=== PATIENT | male | born 1960 | race Caucasian/White ===

== ENCOUNTER 2019-11-12 00:41 | Observation (INO) | payer MEDICARE ==
[2019-11-12] MEDS: Aspirin 81 MG Tab.Chew PO ONE ×2 (00:52→07:58)
[2019-11-12] MEDS: Morphine 2 MG/ML Syringe IVPUSH ONE (01:09)
[2019-11-12] MEDS: Diltiazem 25 MG/5 ML SDV IVPUSH ONE (01:10)
[2019-11-12] MEDS ORDERED: LORazepam 2 MG/ML SDV IVPUSH PRN (02:00)
[2019-11-12] MEDS ORDERED: Acetaminophen/oxyCODONE 325-5 MG Tab PO PRN (03:07)
[2019-11-12] MEDS ORDERED: oxyCODONE 5 MG Tab PO PRN (03:08)
--- NOTE | 2019-11-12 04:06 | ADMIT ---
A 59-year-old male who was admitted through the emergency room. He came in by ambulance last evening with complaints of chest pain and anxiety issues. The cardiac workup was negative. D-dimer was also negative. The patient had traveled from [place] approximately a 6-hour car ride yesterday to come up here for a fishing trip. The patient's workup last night was negative. Troponin was normal. EKG showed just a slight tachycardia starting out around 105 to 110, and the patient was in moderate respiratory distress. This seemed to resolve within about 20 minutes. Upon arrival, he was given 4 baby aspirin and 1.2 mg of morphine and 20 mg of Cardizem IV. The patient was asymptomatic after this, and the lab workup was unremarkable. The white count is slightly elevated at 12.6. D-dimer is normal. Comprehensive metabolic panel normal. Troponin normal. EKG showed just slight tachycardia. He was diagnosed with atypical chest pain and anxiety. The patient will be admitted for observation, and we will repeat the troponin level in the morning. He will also be given Ativan as needed overnight. Past medical history includes dyslipidemia, cardiac arrhythmia. He is not sure if it was just a fast heart rate or atrial fibrillation. Upon transferring the patient from the ER, he was asymptomatic and had been so for approximately 45 minutes. SYMONE/MODL /[id number]
--- NOTE | 2019-11-12 04:06 | ER ---
HISTORY OF PRESENT ILLNESS: A 59-year-old male who comes in by ambulance with complaints of chest pain and shortness of breath. This started approximately 1 hour ago. The patient tells me he had a fishing resort. They just arrived today after several hours of travel time on the road. He had right shoulder pain when he was trying to go to sleep. The patient tells me he decided to get up and get some [place] to put on his shoulder for the pain and he basically passed out or had a near syncopal episode. He states he fell over the chair. He does not think he was completely unconscious, but when he stood up, he was unsteady on his feet and then he developed shortness of breath and chest tightness and some chest pain. Upon arrival to the ER, he tells us that the chest pain had resolved, but he still was having trouble getting enough air. The patient denies any injuries from his fall and states he otherwise has been healthy. He has not been coughing. He has not been sick. He has not been running a fever. PAST MEDICAL HISTORY: Includes tachycardia versus VFib. He is unsure and knows he had some kind of a funny heart rhythm. He has never had any history of coronary artery disease. The patient also has history of dyslipidemia. He denies any history of anxiety. He has chronic pain involving shoulders, hips, knees, and feet. He is taking Percocet 4 times a day for this. OBJECTIVE: GENERAL APPEARANCE: The patient is awake and alert. He is in moderate respiratory distress. VITAL SIGNS: Reviewed. Initially, blood pressure 144/84, temp is 98.7, pulse is between 105 and 110, respirations 28. HEENT: Oral mucous membranes moist. Tonsils not enlarged or injected. Pharynx not inflamed. NECK: Supple. LUNGS: Clear with fairly good air exchange throughout the lung [place]. CARDIAC: Heart sounds distinct. There is a slight murmur. The patient states he has had this for years. ABDOMEN: Soft, protuberant, nontender to palpation. Bowel sounds are present. SKIN: Warm and dry. LAB AND X-RAY: An EKG shows a tachycardic rhythm and a questionable right bundle branch block. The patient was given 4 baby aspirin at this point. EKG was repeated within a couple of minutes due to some poor quality issues and it just shows mild tachycardia and no ST elevation or depression noted. Labs include a CBC showing a slightly elevated white count of 12.6, otherwise unremarkable. D-dimer is less than 100. Comprehensive metabolic panel is normal. Troponin is normal. Chest x-ray is obtained with no acute findings. During the course of waiting for the lab results, the patient did have 2 small episodes where he felt some tightness in his chest. Morphine 2 mg was given x1, and I did give the patient Cardizem 20 mg IV. His pulse came down to around 100 and his breathing relaxed. Within about 30 minutes, his breathing was normal, and the patient has been asymptomatic since. DIAGNOSIS: 1. Chest pain, atypical. 2. Anxiety. TREATMENT PLAN: We will admit the patient for observation overnight, and repeat the troponin level in the morning. SYMONE/MODL /[id number]
--- NOTE | 2019-11-12 07:59 | CR ---
Date of Service: 11/12/19 Clinical Data: Chest pain AP CHEST: No priors . The heart size is normal. The lungs are clear. No pneumothorax. No pleural effusions. No evidence of acute intrathoracic disease. [id number] [facility]
[2019-11-12] MEDS ORDERED: Non-Formulary Medication 1 Each (Magnesium Chloride [Slow-Mag] 71.5 MG) PO SCH (08:00)
[2019-11-12] MEDS ORDERED: Flecainide 50 MG Tab PO SCH (08:00)
[2019-11-12] MEDS ORDERED: Nitroglycerin 0.4 MG Tab.SL SL PRN (08:28)
[2019-11-12] MEDS: Heparin Sodium 5,000 Units/ML Vial IVPUSH ONE (08:45)
[2019-11-12] MEDS: Heparin Sodium/D5W 25,000 UNITS/500 ML BAG IV SCH (08:45)
[2019-11-12] MEDS: Metoprolol Tartrate 25 MG Tab PO ONE (08:50)
[2019-11-12] MEDS: atorvaSTATin 80 MG Tab PO ONE (08:50)
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
[2019-11-12] MEDS: Aspirin 81 MG Tab.EC PO SCH (09:19)
[2019-11-12] MEDS ORDERED: Sodium Chloride 0.9% 1,000 ML IV SCH (09:45)
--- NOTE | 2019-11-12 11:21 | PCM.DCSUM1 ---
Discharge Summary - Hospital Course HPI Initial Comments: 59 yo male with mid sternal chest pain, resolved with rest. Hx of arrhythmia and musculoskeletal hx. Troponin negative on admit and after 6 hour has elevated. Consult with hospitalist, [facility] and orders received for heparin qtt and accepting of pt. Pt has been stable and no acute distress and resting well. Vital signs normal. will transfer per road ambulance, pt stable and VS normal. Heparin qtt started, order for MS prn and nitro prn for transfer. - Discharge Data Discharge Date: 11/12/19 Discharge Disposition: DC/Tfer to Other 70 Condition: Good - Referral to Home Health Primary Care Physician: PCP None - Discharge Plan Home Medications: Home Meds Aspirin [Halfprin] 81 mg PO DAILY 11/12/19 [History] Flecainide Acetate 50 mg PO BID 11/12/19 [History] Magnesium Chloride [Slow-Mag] 71.5 mg PO DAILY 11/12/19 [History] atorvaSTATin [Lipitor] 20 mg PO BEDTIME 11/12/19 [History] oxyCODONE HCl/Acetaminophen [Percocet 7.5-325 mg Tablet] 1 each PO Q6H PRN 11/12 [History] Forms: ED Department Discharge Referrals: PCP,None [Primary Care Provider] - - Discharge Summary/Plan Comment DC Time >30 min.: No Discharge Summary/Plan Comment: Plan to transfer via road ambulance to [facility] with elevated troponin and mid sternal chest pain last night, possible acute coronary syndrome. - General Info Date of Service: 11/12/19 Functional Status: Reports: Pain Controlled, Urinating - Review of Systems General: Reports: No Symptoms HEENT: Reports: No Symptoms Pulmonary: Denies: Shortness of Breath, Pleuritic Chest Pain, Cough Cardiovascular: Denies: Chest Pain, Palpitations, Edema Gastrointestinal: Denies: Abdominal Pain, Decreased Appetite, Diarrhea Neurological: Reports: No Symptoms. Denies: Confusion, Dizziness, Headache Psychiatric: Reports: No Symptoms - Patient Data Vitals - Most Recent: Last Vital Signs Temp 98.3 F 11/12/19 08:00 Pulse 78 11/12/19 08:50 Resp 16 11/12/19 08:00 BP 135/71 11/12/19 08:50 Pulse Ox 97 11/12/19 08:00 Weight - Most Recent: 248 lb Lab Results - Last 24 hrs: Laboratory Results - last 24 hr 11/12/19 11/12/19 11/12/19 Range/Units 01:10 01:10 01:10 WBC 12.6 H (4.0-11.0) K/uL RBC 4.61 (4.50-6.50) M/uL Hgb 15.4 (13.0-18.0) g/dL Hct 44.9 (40.0-54.0) % MCV 97 H (76-96) fL MCH 33.4 H (27.0-32.0) pg MCHC 34.3 (31.0-35.0) g/dL RDW 13.0 (11.0-16.0) % Plt Count 288 (150-400) K/uL MPV 9.5 (6.0-10.0) fL Neut % (Auto) 67.3 (45.0-70.0) % Lymph % (Auto) 19.9 L (20.0-40.0) % [place] % (Auto) 9.5 (3.0-10.0) % Eos % (Auto) 2.7 (1.0-5.0) % Baso % (Auto) 0.6 H (0.0-0.5) % Neut # (Auto) 8.47 H (2.00-7.50) K/uL Lymph # (Auto) 2.50 (1.50-4.00) K/uL [place] # (Auto) 1.20 H (0.20-0.80) K/uL Eos # (Auto) 0.34 (0.04-0.40) K/uL Baso # (Auto) 0.07 (0.02-0.10) K/uL D-Dimer, Quantitative < 100 (0-400) ng/mL Sodium 145 (136-145) mmol/L Potassium 4.1 (3.5-5.1) mmol/L Chloride 105 (98-107) mmol/L Carbon Dioxide 26.0 (21.0-32.0) mmol/L Anion Gap 18.1 H (5.0-15.0) mmol/L BUN 16 (8-26) mg/dL Creatinine 1.12 (0.70-1.30) mg/dL Est Cr Clr Drug Dosing TNP Estimated GFR (MDRD) > 60 (>60) MLS/MIN BUN/Creatinine Ratio 14.3 (6-25) Glucose 120 H (74-100) mg/dL Calcium 9.1 (8.5-10.1) mg/dL Total Bilirubin 0.4 (0.0-1.0) mg/dL AST 24 (15-37) U/L ALT 30 (12-78) U/L Alkaline Phosphatase 69 (46-116) U/L Troponin I < 0.017 (0.000-0.060) ng/mL Total Protein 6.9 (6.4-8.2) g/dL Albumin 3.5 (3.4-5.0) g/dL Globulin 3.4 (2.2-4.2) g/dL Albumin/Globulin Ratio 1.0 (0.8-2.0) 11/12/19 Range/Units 07:05 WBC (4.0-11.0) K/uL RBC (4.50-6.50) M/uL Hgb (13.0-18.0) g/dL Hct (40.0-54.0) % MCV (76-96) fL MCH (27.0-32.0) pg MCHC (31.0-35.0) g/dL RDW (11.0-16.0) % Plt Count (150-400) K/uL MPV (6.0-10.0) fL Neut % (Auto) (45.0-70.0) % Lymph % (Auto) (20.0-40.0) % [place] % (Auto) (3.0-10.0) % Eos % (Auto) (1.0-5.0) % Baso % (Auto) (0.0-0.5) % Neut # (Auto) (2.00-7.50) K/uL Lymph # (Auto) (1.50-4.00) K/uL [place] # (Auto) (0.20-0.80) K/uL Eos # (Auto) (0.04-0.40) K/uL Baso # (Auto) (0.02-0.10) K/uL D-Dimer, Quantitative (0-400) ng/mL Sodium (136-145) mmol/L Potassium (3.5-5.1) mmol/L Chloride (98-107) mmol/L Carbon Dioxide (21.0-32.0) mmol/L Anion Gap (5.0-15.0) mmol/L BUN (8-26) mg/dL Creatinine (0.70-1.30) mg/dL Est Cr Clr Drug Dosing Estimated GFR (MDRD) (>60) MLS/MIN BUN/Creatinine Ratio (6-25) Glucose (74-100) mg/dL Calcium (8.5-10.1) mg/dL Total Bilirubin (0.0-1.0) mg/dL AST (15-37) U/L ALT (12-78) U/L Alkaline Phosphatase (46-116) U/L Troponin I 0.222 H* D (0.000-0.060) ng/mL Total Protein (6.4-8.2) g/dL Albumin (3.4-5.0) g/dL Globulin (2.2-4.2) g/dL Albumin/Globulin Ratio (0.8-2.0) Med Orders - Current: Current Medications Aspirin (Halfprin) 81 mg PO DAILY JW Last Admin: 11/12/19 09:19 Dose: Not Given Atorvastatin Calcium (Lipitor) 20 mg PO BEDTIME [facility] Flecainide Acetate (Tambocor) 50 mg PO BID [facility] Heparin Sodium/Dextrose (Heparin 25,000 Units In D5w 500 Ml) 25,000 units in 500 mls @ 26.998 mls/hr IV TITRATE JW; Protocol Last Admin: 11/12/19 08:45 Dose: 12 units/kg/hr, 26.998 mls/hr Sodium Chloride (Normal Saline) 1,000 mls @ 0 mls/hr IV ASDIRECTED JW Lorazepam (Ativan) 1 mg IVPUSH Q6H PRN PRN Reason: Anxiety Nitroglycerin (Nitrostat) 0.4 mg SL Q5M PRN PRN Reason: Chest Pain Non-Formulary Medication (Magnesium Chloride [Slow-Mag]) 71.5 mg PO DAILY [facility] Oxycodone HCl (Oxycodone) 2.5 mg PO Q6H PRN PRN Reason: pain Oxycodone/Acetaminophen (Percocet 325-5 Mg) 1 tab PO Q6H PRN PRN Reason: pain Discontinued Medications Aspirin (Aspirin) 324 mg PO ONETIME ONE Stop: 11/12/19 00:51 Last Admin: 11/12/19 00:52 Dose: 324 mg Aspirin (Aspirin) 324 mg PO ONETIME ONE Stop: 11/12/19 09:02 Last Admin: 11/12/19 07:58 Dose: 324 mg Atorvastatin Calcium (Lipitor) 80 mg PO ONETIME ONE Stop: 11/12/19 08:27 Last Admin: 11/12/19 08:50 Dose: 80 mg Diltiazem HCl (Diltiazem) 20 mg IVPUSH ONETIME ONE Stop: 11/12/19 01:04 Last Admin: 11/12/19 01:10 Dose: 20 mg Heparin Sodium (Porcine) (Heparin Sodium) 4,000 units IVPUSH .BOLUS ONE Stop: 11/12/19 08:43 Last Admin: 11/12/19 08:45 Dose: 4,000 units Metoprolol Tartrate (Lopressor) 25 mg PO ONETIME ONE Stop: 11/12/19 08:26 Last Admin: 11/12/19 08:50 Dose: 25 mg Morphine Sulfate (Morphine) 2 mg IVPUSH ONETIME ONE Stop: 11/12/19 01:04 Last Admin: 11/12/19 01:09 Dose: 2 mg - Exam General: Reports: Alert, Oriented, Cooperative, No Acute Distress HEENT: Reports: Mucous Membr. Moist/[place] Neck: Reports: Supple, Trachea Midline, No JVD Lungs: Reports: Clear to Auscultation, Normal Respiratory Effort. Denies: Crackles, Rhonchi Cardiovascular: Reports: Regular Rate, Regular Rhythm, No Murmurs GI/Abdominal Exam: Normal Bowel Sounds, Soft, Non-Tender, No Distention Extremities: Normal Inspection, Non-Tender, No Pedal Edema Skin: Reports: Warm, Dry Psy/Mental Status: Reports: Alert, Normal Affect, Normal Mood
[2019-11-12] MEDS ORDERED: atorvaSTATin 20 MG Tab PO SCH (20:00)
== END 2019-11-12 09:22 | disposition other institution (70) ==
LOC: LB.ED 00:41 → LB.MS 02:00 → MERGE 02:00
PROVIDERS: ADMIT Physician Assistant; ATTEND Physician Assistant
DX: R07.2 Precordial pain (principal); F41.9 Anxiety disorder, unspecified; E78.5 Hyperlipidemia, unspecified; G89.29 Other chronic pain; M25.512 Pain in left shoulder; M25.511 Pain in right shoulder; M25.552 Pain in left hip; M25.551 Pain in right hip; M25.562 Pain in left knee; M25.561 Pain in right knee; M79.672 Pain in left foot; M79.671 Pain in right foot; Z79.82 Long term (current) use of aspirin; Z79.899 Other long term (current) drug therapy; Z98.890 Other specified postprocedural states
CPT/HCPCS: 36415; 71045; 80053; 84484; 85025; 85379; 93005; 96365; 96374; 96375; 96376; 99235; 99285-25; A0425; A0429; A9270-GY; G0378; J1644; J2270; J3490

== ENCOUNTER 2020-01-21 02:02 | Emergency (ER) | payer MEDICARE ==
[2020-01-21] MEDS ORDERED: Apixaban 5 MG Tab ONE (02:30)
--- NOTE | 2020-01-21 03:10 | ER ---
HISTORY OF PRESENT ILLNESS: A 59-year-old male here with complaints of what feels like heart palpitations. At times, he has trouble feeling his pulse. He states this started over the course of the day today. He denies any chest pain or shortness of breath and states that he otherwise feels fine. The patient does have history of shortness of breath in the past and anxiety. The patient is on a heart monitor and was told that he had 1 episode previously of atrial fibrillation that lasted for 5.5 hours. The patient tells me that he is back in this area because he has a brother who just and the patient who had quit smoking months ago bought 2 packs of cigarettes and smoked them, starting yesterday and over the course of the day today. Again, the patient denies any problems with chest pain, nausea, vomiting, or trouble breathing. OBJECTIVE: GENERAL APPEARANCE: The patient is awake and alert. Pleasant and talkative. VITAL SIGNS: Reviewed. Blood pressure is 103/76, pulse is irregular with a rate around 120- 130 range. SKIN: Warm and dry. LUNGS: Clear. LAB AND X-RAY STUDIES: EKG is obtained showing atrial fibrillation with a ventricular rate of 132 at this time. DIAGNOSIS: Atrial fibrillation, possibly due to an overdose of nicotine. TREATMENT PLAN: I advised the patient that he needs to stop smoking and he readily agrees. I advised patient to increase his water intake by several glasses over the next couple of days. His blood pressure is on the low side and I think once the effects of the nicotine wear off, he could easily convert back to a normal sinus rhythm. In the meantime, however, we will start him on Eliquis 5 mg b.i.d., giving him a 2 day supply. The patient's symptoms do not resolve. I want him to follow up in the clinic here within the next 2 days for recheck. The patient agrees with the treatment plan and has no further questions. CRS/MODL /[id number] [place]
== END 2020-01-21 02:47 | disposition home or self-care (01) ==
LOC: LB.ED 02:02
DX: I48.91 Unspecified atrial fibrillation (principal); F17.210 Nicotine dependence, cigarettes, uncomplicated
CPT/HCPCS: 93005; 99283; 99284-25; A9270-GY